=== PATIENT | male | born 1960 | race Two or more races ===

== ENCOUNTER 2022-11-02 11:04 | Inpatient (IN) | payer OTHER ==
[~2022-11-02] VITALS: Ht 167.6 cm; Wt 68.0 kg
[2022-11-09] MEDS ORDERED: FAMOTIDINE20 MG (13:46)
[2022-11-11] MEDS ORDERED: NEURONTIN300 MG PO (15:54)
[2022-11-11] MEDS ORDERED: ACETAMINOPHEN500 M2 PO (15:54)
== END 2022-11-11 18:30 | disposition home or self-care (01) | DRG 330 ==
LOC: MEDI 11-08 07:13 → O/R 11-08 07:13 → SURH 11-08 10:15 → EDBD 11-08 12:00 → MEDJ 11-08 19:50 → MEDI 11-08 20:31
PROVIDERS: ADMIT Surgery; ATTEND Surgery
PROC: 0DBP4ZZ Excision of Rectum, Percutaneous Endoscopic Approach (ICD-10-PCS; 2022-11-08)
PROC: 0D1B4Z4 Bypass Ileum to Cutaneous, Percutaneous Endoscopic Approach (ICD-10-PCS; 2022-11-08)
PROC: 07BB4ZZ Excision of Mesenteric Lymphatic, Percutaneous Endoscopic Approach (ICD-10-PCS; 2022-11-08)
PROC: 0DTN4ZZ Resection of Sigmoid Colon, Percutaneous Endoscopic Approach (ICD-10-PCS; principal; 2022-11-08 10:15)
DX: C19 Malignant neoplasm of rectosigmoid junction (principal); K62.5 Hemorrhage of anus and rectum; R59.0 Localized enlarged lymph nodes; K59.09 Other constipation; Z43.2 Encounter for attention to ileostomy

== ENCOUNTER 2022-12-23 07:24 | Day surgery (SDC) | payer OTHER ==
[~2022-12-23 07:24] MED LIST: ACETAMINOPHEN500 M2 PO; FAMOTIDINE20 MG; NEURONTIN300 MG PO
[2022-12-23] MEDS ORDERED: TRAM1TAB98 PO (13:13)
== END 2022-12-23 14:30 | disposition home or self-care (01) ==
LOC: CIR.AMB 07:24 → EDBD 08:45 → CIR.AMB 08:45
PROVIDERS: ATTEND Surgery
DX: C19 Malignant neoplasm of rectosigmoid junction (principal); Z20.822 Contact with and (suspected) exposure to COVID-19; K62.5 Hemorrhage of anus and rectum; R59.0 Localized enlarged lymph nodes; Z86.16 Personal history of COVID-19

== ENCOUNTER 2023-11-22 15:58 | Inpatient (IN) | payer OTHER ==
[~2023-11-22] VITALS: Ht 152.4 cm; Wt 56.7 kg
[~2023-11-22 15:58] MED LIST changes: +TRAM1TAB98 PO
[2023-11-22] MEDS ORDERED: 0.9 % SODIUM CHLORIDE 500 ML IV SCH (18:00)
[2023-11-22] MEDS ORDERED: FAMOTIDINE/PF 20 MG/2 ML VIAL IV ONE (18:00)
[2023-11-22] MEDS ORDERED: MORPHINE SULFATE 4 MG/ML VIAL IV ONE (18:00)
[2023-11-22 18:25] LABS: HEMATOCRIT 36.8 % (39.0-48.0); HEMOGLOBIN 12.7 g/dL (13-16.00); MEAN CELL VOLUME 95.7 fL (80.0-100.00); MEAN CORPUSCULAR HEMOGLOBIN 32.9 pg (27.00-32.0); MEAN CORPUSCULAR HGB CONC 34.4 g/dl (32.0-36.0); PLATELET COUNT 164 K/uL (150-450); RED BLOOD COUNT 3.85 M/uL (4.00-6.00); RED CELL DISTRIBUTION WIDTH 12.6 % (11.5-14.5)
[2023-11-22 18:41] LABS: INR 1.03; PARTIAL THROMBOPLASTIN TIME 26.4 SECONDS (22.0-34.0); PROTHROMBIN TIME 10.8 SECONDS (9.0-11.5)
[2023-11-22 18:44] LABS: CALCIUM 9.3 mg/dL (8.5-10.1); CREATININE SERUM 0.78 mg/dL (0.70-1.30); GFR 100.85; POTASSIUM 3.47 mEq/L (3.5-5.1)
[2023-11-22 19:08] LABS: URINE APPEARANCE Clear; URINE BILIRRUBIN Negative (NEGATIVE); URINE BLOOD Negative; URINE COLOR Yellow; URINE GLUCOSE Negative (NEGATIVE); URINE LEUKOCYTE Negative; URINE NITRATE Negative; URINE PROTEIN Negative (NEGATIVE)
[2023-11-22 19:12] LABS: URINE BACTERIA 8.8 uL (0.0-1933); URINE EPITHELIAL CELLS 4.9 uL (0.0-38.8); URINE RBC 2.1 uL (0.0-20.8); URINE WBC 3.8 uL (0.0-23.2)
[2023-11-22] MEDS ORDERED: PIPERACILLIN/TAZOBACTAM SODIUM 3.375 GM VIAL IV ONE (20:45)
[2023-11-22] MEDS ORDERED: 0.9 % SODIUM CHLORIDE 1,000 ML IV SCH (21:15)
[2023-11-22] MEDS ORDERED: ONDANSETRON HCL 4 MG in 0.9 % SODIUM CHLORIDE 50 ML IV PRN (21:15)
[2023-11-22] MEDS ORDERED: MEPERIDINE HCL/PF 25 MG/ML VIAL IM PRN (21:15)
[2023-11-23] MEDS ORDERED: PIPERACILLIN/TAZOBACTAM SODIUM 3.375 GM in DEXTROSE 5 % IN WATER 100 ML IV SCH
[2023-11-23] MEDS ORDERED: FAMOTIDINE/PF 20 MG in 0.9 % SODIUM CHLORIDE 8 ML IV PUSH SCH (09:00)
[2023-11-23] MEDS ORDERED: FAMOTIDINE/PF 20 MG/2 ML VIAL ONE (09:25)
[2023-11-23] MEDS ORDERED: PIPERACILLIN/TAZOBACTAM SODIUM 3.375 GM VIAL IV ONE (22:52)
[2023-11-24 06:39] LABS: HEMATOCRIT 34.7 % (39.0-48.0); HEMOGLOBIN 11.7 g/dL (13-16.00); MEAN CELL VOLUME 96.4 fL (80.0-100.00); MEAN CORPUSCULAR HEMOGLOBIN 32.6 pg (27.00-32.0); MEAN CORPUSCULAR HGB CONC 33.8 g/dl (32.0-36.0); PLATELET COUNT 159 K/uL (150-450); RED CELL DISTRIBUTION WIDTH 12.4 % (11.5-14.5)
[2023-11-24 06:58] LABS: CALCIUM 9.4 mg/dL (8.5-10.1); CREATININE SERUM 0.69 mg/dL (0.70-1.30); GFR 116.18; POTASSIUM 4.04 mEq/L (3.5-5.1)
[2023-11-25] MEDS ORDERED: FAMOTIDINE/PF 20 MG/2 ML VIAL ONE (07:55)
[2023-11-25] MEDS ORDERED: DEXTROSE 10 % IN WATER 500 ML IV SCH (12:00)
[2023-11-25 14:36] LABS: CALCIUM 8.9 mg/dL (8.5-10.1); CHOL HDL RATIO 3.2 (0-5.0); CREATININE SERUM 0.6 mg/dL (0.70-1.30); GFR 136.52; POTASSIUM 3.66 mEq/L (3.5-5.1)
[2023-11-25] MEDS ORDERED: AA 4.25%/CAL/LYTES/DEXT 5% 1,000 ML PERIFERAL SCH (17:00)
[2023-11-26 07:23] LABS: CHOL HDL RATIO 3.3 (0-5.0)
[2023-11-28 07:01] LABS: HEMATOCRIT 30.4 % (39.0-48.0); HEMOGLOBIN 10.5 g/dL (13-16.00); MEAN CELL VOLUME 94.3 fL (80.0-100.00); MEAN CORPUSCULAR HEMOGLOBIN 32.4 pg (27.00-32.0); MEAN CORPUSCULAR HGB CONC 34.4 g/dl (32.0-36.0); RED BLOOD COUNT 3.22 M/uL (4.00-6.00); RED CELL DISTRIBUTION WIDTH 12.6 % (11.5-14.5)
[2023-11-28 07:09] LABS: PLATELET COUNT 127 K/uL (150-450)
[2023-11-28 07:21] LABS: ALBUMIN 2.7 gm/dL (3.4-5.0); BILIRUBIN TOTAL 0.38 mg/dL (0.3-1.2); CALCIUM 8.5 mg/dL (8.5-10.1); CREATININE SERUM 0.59 mg/dL (0.70-1.30); GFR 139.19; GLOBULINA 2.7 G/DL (2.4-3.5); POTASSIUM 5.15 mEq/L (3.5-5.1); TOTAL PROTEIN 5.4 gm/dL (6.4-8.2)
[2023-11-28] MEDS ORDERED: IOHEXOL 350 mgI/ML 50ML BOTT PO STA (17:24)
[2023-11-29] MEDS ORDERED: ENOXAPARIN SODIUM 40 MG/0.4 ML SYRINGE SUBCUTANEO SCH (09:00)
[2023-11-29 13:21] LABS: ALBUMIN 3.5 gm/dL (3.4-5.0); CALCIUM 9.4 mg/dL (8.5-10.1); CREATININE SERUM 0.75 mg/dL (0.70-1.30); GFR 105.52; PHOSPHOROUS 3.8 mg/dL (2.5-4.9); POTASSIUM 3.4 mEq/L (3.5-5.1)
[2023-11-30 06:27] LABS: HEMATOCRIT 29.9 % (39.0-48.0); HEMOGLOBIN 10.3 g/dL (13-16.00); MEAN CELL VOLUME 92.9 fL (80.0-100.00); MEAN CORPUSCULAR HEMOGLOBIN 31.9 pg (27.00-32.0); MEAN CORPUSCULAR HGB CONC 34.4 g/dl (32.0-36.0); PLATELET COUNT 133 K/uL (150-450); RED BLOOD COUNT 3.21 M/uL (4.00-6.00); RED CELL DISTRIBUTION WIDTH 12.5 % (11.5-14.5)
[2023-11-30 06:33] LABS: CALCIUM 8.8 mg/dL (8.5-10.1); CREATININE SERUM 0.76 mg/dL (0.70-1.30); GFR 103.92; POTASSIUM 3.67 mEq/L (3.5-5.1)
[2023-11-30] MEDS ORDERED: HYOSCYAMINE0.125 M1 SL (11:46)
[2023-11-30] MEDS ORDERED: METOCLOPRAMIDE HCL 5 MG/ML VIAL IV PRN (13:30)
[2023-11-30] MEDS ORDERED: ONDANSETRON HCL 2 MG/ML VIAL IV PRN (13:30)
[2023-12-01] MEDS ORDERED: METOCLOPRAMIDE HCL 5 MG/ML VIAL IV SCH (06:23)
[2023-12-01] MEDS ORDERED: PANTOPRAZOLE SODIUM 40 MG/VIAL VIAL IV SCH (10:48)
[2023-12-01] MEDS ORDERED: MIDAZOLAM HCL 2 MG/2 ML VIAL IV ONE (11:00)
[2023-12-01] MEDS ORDERED: fentaNYL CITRATE 50 MCG/ML AMPUL IV ONE (11:00)
[2023-12-04 06:30] LABS: HEMATOCRIT 31.8 % (39.0-48.0); MEAN CELL VOLUME 94.5 fL (80.0-100.00); MEAN CORPUSCULAR HEMOGLOBIN 32.5 pg (27.00-32.0); MEAN CORPUSCULAR HGB CONC 34.4 g/dl (32.0-36.0); PLATELET COUNT 172 K/uL (150-450); RED BLOOD COUNT 3.37 M/uL (4.00-6.00); RED CELL DISTRIBUTION WIDTH 12.4 % (11.5-14.5)
[2023-12-04 07:00] LABS: ALBUMIN 3.2 gm/dL (3.4-5.0); ALKALINE PHOSPHATASE 77 U/L (50-136); ALT/SGPT 19 U/L (12-78); ANION GAP 11 (10.0-20.0); AST/SGOT 14 U/L (15-37); BILIRUBIN TOTAL 0.38 mg/dL (0.3-1.2); BILIRUBIN,CONJUGATED < 0.10 mg/dL (0.0-0.2); BILIRUBIN,UNCONJUGATED 0.28 mg/dL (0.0-0.6); BLOOD UREA NITROGEN 12 mg/dL (7-18); BUN CREA RATIO 20 (7.0-25.0); CALCIUM 9.2 mg/dL (8.5-10.1); CARBON DIOXIDE 28 mEq/L (21-32); CHLORIDE 104 mmol/L (98-107); CHOL HDL RATIO 3.8 (0-5.0); CHOLESTEROL 140 mg/dL (0-200); CREATININE SERUM 0.61 mg/dL (0.70-1.30); GFR 133.94; GLOBULINA 3.2 G/DL (2.4-3.5); GLUCOSE FASTING 163 mg/dL (65-100); HDL 37 mg/dl (40-60); LDL 78 mg/dl (0-130); OSMOLALITY SERUM 281 MOSM/KG (275-295); POTASSIUM 4.45 mEq/L (3.5-5.1); SODIUM 139 mmol/L (136-145); TOTAL PROTEIN 6.4 gm/dL (6.4-8.2); TRIGLYCERIDES 124 mg/dL (0-150); VLDL 24 (0-39)
[2023-12-04 07:10] LABS: INR 0.98; PARTIAL THROMBOPLASTIN TIME 26.2 SECONDS (22.0-34.0); PROTHROMBIN TIME 10.3 SECONDS (9.0-11.5)
[2023-12-04 09:26] LABS: UREA CLEARANCE 39.4 ML/MIN
[2023-12-04] MEDS ORDERED: PEPCID AC20 MG PO (16:24)
[2023-12-04] MEDS ORDERED: HYOSCYAMINE0.125 M1 SL (16:24)
[2023-12-04] MEDS ORDERED: INTESTINEX680 M1 PO (16:24)
== END 2023-12-04 17:51 | disposition home or self-care (01) | DRG 390 ==
LOC: ER 15:58 → SURG 21:27 → SURH 12-01 13:15
PROVIDERS: General Practice; Internal Medicine; Surgery; ADMIT Surgery; ATTEND Surgery
PROC: 0DH67UZ Insertion of Feeding Device into Stomach, Via Natural or Artificial Opening (ICD-10-PCS; 2023-11-22)
PROC: BW21YZZ Computerized Tomography (CT Scan) of Abdomen and Pelvis using Other Contrast (ICD-10-PCS; 2023-11-28)
PROC: 0DB98ZX Excision of Duodenum, Via Natural or Artificial Opening Endoscopic, Diagnostic (ICD-10-PCS; principal; 2023-12-01)
PROC: 0DB78ZX Excision of Stomach, Pylorus, Via Natural or Artificial Opening Endoscopic, Diagnostic (ICD-10-PCS; 2023-12-01)
DX: K56.699 Other intestinal obstruction unspecified as to partial versus complete obstruction (principal); K29.80 Duodenitis without bleeding; K29.70 Gastritis, unspecified, without bleeding; Z20.822 Contact with and (suspected) exposure to COVID-19